=== PATIENT | male | born 1955 | race African-American/Black ===

== ENCOUNTER 2018-04-06 22:56 | Inpatient (IN) | payer OTHER ==
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
[2018-04-07] MEDS ORDERED: NALOXONE 0.4 MG/ML 1 ML VIAL IV PRN (00:20)
[2018-04-07] MEDS ORDERED: ONDANSETRON 4 MG/2 ML VIAL IVP PRN (00:20)
[2018-04-07] MEDS ORDERED: LORazepam 2 MG/ML INJ IV PRN ×2 (00:23)
[2018-04-07] MEDS ORDERED: THIAMINE 100 MG/ML 2 ML VIAL IM STA (00:23)
[2018-04-07] MEDS ORDERED: PHENYTOIN SODIUM EXTENDED 100 MG CAP PO STA (00:24)
[2018-04-07] MEDS: SODIUM CHLORIDE 0.9% 1,000 ML IV SCH ×4 (00:48→21:22)
[2018-04-07] MEDS: MORPHINE SULFATE 4 MG/ML SYRINGE IV PRN ×2 (02:23→05:58)
[2018-04-07 05:54] VITALS: BMI 20.5
[2018-04-07] MEDS: PHENYTOIN SODIUM EXTENDED 100 MG CAP PO SCH ×3 (07:36→21:21)
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
[2018-04-07 10:54] LABS: INR 1.1 (<1.2); Prothrombin Time 11.1 sec (9.0-12.0)
[2018-04-07 11:15] LABS: HCT 38.9 % (39.0-53.0); HGB 12.5 gm/dL (13.0-17.5); MCH 26.3 pg (25.0-35.0); MCV 82.2 fL (80.0-100.0); Mean Platelet Volume 7.6; Platelet Count 118 k/uL (150-450); RBC 4.74 m/uL (4.30-5.90); RDW 15.8 % (11.5-15.5)
[2018-04-07 11:18] LABS: Anion Gap 9 mmol/L; Blood Urea Nitrogen 10 mg/dL (9-20); Calcium 8.2 mg/dL (8.4-10.2); Carbon Dioxide 26 mmol/L (22-30); Chloride 102 mmol/L (98-107); Glucose 90 mg/dL (74-99); Potassium 3.9 mmol/L (3.5-5.1); Sodium 137 mmol/L (137-145)
[2018-04-07] MEDS: HEPARIN SODIUM,PORCINE 5,000 UNIT/ML 1 ML VIAL SQ SCH ×2 (12:59→21:21)
[2018-04-07] MEDS: THIAMINE 100 MG TAB PO SCH ×2 (12:59→17:31)
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
[2018-04-07] MEDS: FOLIC ACID 1 MG TAB PO SCH (17:31)
[2018-04-07] MEDS: chlordiazePOXIDE 25 MG CAP PO SCH (21:21)
[2018-04-08] MEDS: MORPHINE SULFATE 4 MG/ML SYRINGE IV PRN ×3 (00:44→17:17)
[2018-04-08] MEDS: SODIUM CHLORIDE 0.9% 1,000 ML IV SCH ×3 (06:11→16:54)
[2018-04-08] MEDS: HEPARIN SODIUM,PORCINE 5,000 UNIT/ML 1 ML VIAL SQ SCH (07:28)
[2018-04-08] MEDS: PHENYTOIN SODIUM EXTENDED 100 MG CAP PO SCH ×3 (07:29→20:31)
[2018-04-08] MEDS: chlordiazePOXIDE 25 MG CAP PO SCH ×2 (07:29→20:29)
[2018-04-08] MEDS ORDERED: MIDAZOLAM 2 MG/2 ML VIAL ONE (07:55)
[2018-04-08] MEDS ORDERED: diphenhydrAMINE 50 MG/ML 1 ML VIAL ONE (07:55)
[2018-04-08] MEDS ORDERED: fentaNYL (PF) 50 MCG/ML 2 ML AMP ONE (07:55)
[2018-04-08] MEDS ORDERED: SODIUM CHLORIDE 0.9% 1,000 ML IV ONE ×2 (07:55)
[2018-04-08] MEDS ORDERED: SODIUM CHLORIDE 0.9% 50 ML with ceFAZolin 2,000 MG IV ONE ×2 (08:10)
[2018-04-08] MEDS ORDERED: LACTATED RINGERS 1,000 ML IV ONE (08:32)
--- NOTE | 2018-04-08 09:13 | P.OP ---
Date of Procedure: 04/08/18 Preoperative Diagnosis: Displaced left intertrochanteric femur fracture Postoperative Diagnosis: Same Procedure(s) Performed: Open reduction and internal fixation left displaced intertrochanteric femur fracture Implants: King 4-hole free lock, one 35, standard barrel, 95 mm compression screw Anesthesia: spinal Surgeon: George Alvarez Estimated Blood Loss (ml): 100 Pathology: none sent Condition: stable Disposition: PACU Indications for Procedure: The patient's a 62-year-old male presents with left hip pain after a fall. He was noted to have a displaced left intertrochanteric femur fracture. A discussion of the risks and benefits of operative intervention was made with patient. He opted to proceed. Specific risks of the procedure to include infection, neurovascular injury, development of blood clots, possible development of nonunion/malunion and need for subsequent procedures was discussed. Informed consent was obtained. Operative Findings: As below Description of Procedure: The patient was brought to the operating room, and after induction of spinal anesthesia was placed supine on the fracture table. The fracture was reduced with longitudinal traction and internal rotation of the left leg. This was verified with fluoroscopy on the AP and lateral views. The left hip was then prepped and draped in normal fashion. An 8 cm incision was then made starting distal to the greater trochanter in line with the femoral shaft. Skin and subcutaneous tissues were divided sharply. Electrocautery was used for hemostasis. The fascia avinash was split in line with the skin incision. The vastus lateralis fascia was split along its posterior margins of muscle fibers were bluntly dissected anteriorly. A threaded guidepin was then placed into the center-center position of the femoral head and neck on the AP and lateral views to within 5 mm the articular surface. A triple reamer was used to a depth of 95 mm. A 95 mm compression screw was inserted. A 4 hole sideplate was attached to lateral femur with 4.5 mm cortical screws the appropriate length. A short compression screw was utilized. Traction was then released. Final fluoroscopic views showed adequate reduction of fracture and placement of the implant. The wound was irrigated normal saline. The fascia avinash was closed with running #1 Vicryl suture. The subcutaneous tissues were reapproximated interrupted 2-0 Vicryl sutures. The skin was repaired with aziza. A sterile dressing was applied. The patient was awoken from sedation and transferred to recovery room in good condition. Blood loss was estimated at 100 cc. No complications were incurred. Sponge and needle counts were correct at the end the case.
--- NOTE | 2018-04-08 09:49 | P.PN ---
Subjective Progress Note Date: 04/08/18 Patient reported feeling better with pain control appropriate. Patient was seen just before he was rolled out of the room to the operating room. Patient denies chest pain, palpitation, fever, chills, nausea, vomiting, headache, diaphoresis, dizziness and denies rest of the review system. Nurses reported that patient's CIWA score was better and there was no reported DTs. Patient is tolerating scheduled Librium and as needed Ativan well. Patient also stated that this visit he did not had any withdrawal symptoms. No other issues reported by the nurses and no breakthrough seizure activity reported by them. Objective - Vital Signs Vital signs: Vital Signs Temp 97.5 F L 04/08/18 09:10 Pulse 85 04/08/18 09:25 Resp 16 04/08/18 09:25 BP 105/68 04/08/18 09:25 Pulse Ox 94 L 04/08/18 09:25 Intake & Output 04/07/18 04/08/18 04/08/18 18:59 06:59 18:59 Intake Total 1700 700 Output Total 200 200 100 Balance 1500 -200 600 Intake: IV 700 Intake, IV Titration 600 Amount Sodium Chloride 0.9% 1, 600 000 ml @ 150 mls/hr IV . Q6H40M [facility] Rx#:[id number] Oral 1100 Output: Urine 200 200 Estimated Blood Loss 100 Other: Voiding Method Urinal Urinal # Voids 2 1 - Constitutional General appearance: Present: average body habitus, cooperative, no acute distress - EENT Eyes: Present: EOMI, normal appearance - Neck Neck: Present: normal ROM. Absent: lymphadenopathy, rigidity, stridor, thyromegaly - Respiratory Respiratory: bilateral: CTA, negative: dullness, rales, rhonchi, wheezing - Cardiovascular Rhythm: regular Heart sounds: normal: S1, S2 Abnormal Heart Sounds: Absent: systolic murmur, diastolic murmur, S3 Gallop, S4 Gallop - Gastrointestinal General gastrointestinal: Present: normal bowel sounds, soft. Absent: distended , organomegaly, rigid, tenderness - Neurologic Neurologic: Present: CNII-XII intact. Absent: focal deficits - Psychiatric Psychiatric: Present: A&O x's 3, appropriate affect, intact judgment & insight - Allied health notes Allied health notes reviewed: nursing - Labs CBC & Chem 7: 04/07/18 10:37 04/07/18 10:37 Labs: Abnormal Lab Results - Last 24 Hours (Table) 04/07/18 04/07/18 Range/Units 10:37 10:37 Hgb 12.5 L (13.0-17.5) gm/dL Hct 38.9 L (39.0-53.0) % RDW 15.8 H (11.5-15.5) % Plt Count 118 L (150-450) k/uL Creatinine 0.48 L (0.66-1.25) mg/dL Calcium 8.2 L (8.4-10.2) mg/dL Assessment and Plan (1) Alcohol intoxication Narrative/Plan: Patient is well controlled for his alcohol withdrawal symptoms, he reported no feeling of withdrawal from alcohol and nurses reported no documented evidence of significant alcohol withdrawal. Patient will be continued on Librium/Ativan orally and will be resumed once he is back from surgery. Current Visit: Yes Status: Acute Priority: High Code(s): F10.929 - ALCOHOL USE, UNSPECIFIED WITH INTOXICATION, UNSPECIFIED SNOMED Code(s): 10694007 (2) Seizure disorder Narrative/Plan: Fairly stable on current management with Dilantin, no breakthrough seizure activity noted or reported, we will continue the current management. Current Visit: Yes Status: Acute Priority: High Code(s): G40.909 - EPILEPSY, UNSP, NOT INTRACTABLE, WITHOUT STATUS EPILEPTICUS SNOMED Code(s): 892700632 (3) Polysubstance abuse Narrative/Plan: Counseling done regarding quitting crack cocaine/marijuana and this was not well taken by the patient. Current Visit: Yes Status: Acute Priority: High Code(s): F19.10 - OTHER PSYCHOACTIVE SUBSTANCE ABUSE, UNCOMPLICATED SNOMED Code(s): 142722308 (4) Intertrochanteric fracture of left femur Narrative/Plan: Patient will be going for left hip open reduction and internal fixation today. Current Visit: Yes Status: Acute Priority: Medium Code(s): S72.142A - DISPLACED INTERTROCHANTERIC FRACTURE OF LEFT FEMUR, INIT SNOMED Code(s): 799068276 Plan: We will continue to monitor his medical conditions while he is in the hospital, thanks for consulting medicine/hospitalist team for the medical management of this nice gentleman. Time with Patient: Less than 30
--- NOTE | 2018-04-08 10:46 | XR ---
FLUOROSCOPY 39 seconds of fluoroscopy time were utilized during internal fixation of the left hip. 3 images docum ent the procedure.
[2018-04-08] MEDS: FOLIC ACID 1 MG TAB PO SCH (13:18)
[2018-04-08] MEDS: THIAMINE 100 MG TAB PO SCH ×2 (13:18→16:54)
[2018-04-08] MEDS: ceFAZolin IN SWFI 2 GM/20 ML SYRINGE IVP SCH ×2 (16:53→23:53)
[2018-04-08] MEDS ORDERED: HYDROcodone/APAP 7.5-325MG 1 EACH TAB PO PRN ×2 (18:43)
[2018-04-08] MEDS ORDERED: HYDROmorphone 1 MG/ML 1 ML SYRINGE IM PRN ×2 (18:43)
[2018-04-08] MEDS ORDERED: HYDROmorphone 1 MG/ML 1 ML SYRINGE IVP PRN ×2 (18:46)
[2018-04-08] MEDS: LORazepam 2 MG/ML INJ IV PRN ×3 (19:29→23:32)
[2018-04-09 07:33] LABS: Basophils % (A) 0 %; Eosinophils # (A) 0.1 k/uL (0-0.7); Eosinophils % (A) 1 %; HCT 32.9 % (39.0-53.0); HGB 10.6 gm/dL (13.0-17.5); Lymphocytes # (A) 1.2 k/uL (1.0-4.8); Lymphocytes % (A) 12 %; MCH 26.3 pg (25.0-35.0); MCHC 32.1 g/dL (31.0-37.0); MCV 81.8 fL (80.0-100.0); Mean Platelet Volume 8.2; Monocytes # (A) 0.6 k/uL (0-1.0); Monocytes % (A) 6 %; Neutrophils # (A) 7.7 k/uL (1.3-7.7); Neutrophils % (A) 80 %; RBC 4.03 m/uL (4.30-5.90); RDW 15.9 % (11.5-15.5); WBC 9.7 k/uL (3.8-10.6)
[2018-04-09 07:42] LABS: Platelet Count 89 k/uL (150-450)
[2018-04-09] MEDS: SODIUM CHLORIDE 0.9% 1,000 ML IV SCH ×3 (08:20→15:19)
[2018-04-09] MEDS: PHENYTOIN SODIUM EXTENDED 100 MG CAP PO SCH ×3 (08:56→21:49)
[2018-04-09] MEDS: chlordiazePOXIDE 25 MG CAP PO SCH (08:56)
[2018-04-09] MEDS: HEPARIN SODIUM,PORCINE 5,000 UNIT/ML 1 ML VIAL SQ SCH ×2 (08:57→21:49)
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
[2018-04-09] MEDS: THIAMINE 100 MG TAB PO SCH ×2 (13:03→16:26)
[2018-04-09] MEDS: FOLIC ACID 1 MG TAB PO SCH (13:03)
--- NOTE | 2018-04-09 17:22 | P.PN ---
Subjective Progress Note Date: 04/09/18 Principal diagnosis: Status post ORIF left intertrochanteric hip fracture Patient seen today resting in bed, he is very sleepy during my exam. He is articulating his eyes open. Pain is controlled. There was concern last night the patient was in DTs, this has improved with current medical regimen. Objective - Vital Signs Vital signs: Vital Signs Temp 99.9 F H 04/09/18 15:00 Pulse 92 04/09/18 15:00 Resp 12 04/09/18 15:00 BP 101/64 04/09/18 15:00 Pulse Ox 91 L 04/09/18 15:00 Intake & Output 04/08/18 04/09/18 04/09/18 18:59 06:59 18:59 Intake Total 3230 1375 Output Total 2300 125 Balance 930 -125 1375 Intake: IV 900 1200 Sodium Chloride 0.9% 1, 1200 000 ml @ 150 mls/hr IV . Q6H40M [facility] Rx#:[id number] Intake, IV Titration 950 Amount Sodium Chloride 0.9% 1, 900 000 ml @ 150 mls/hr IV . Q6H40M [facility] Rx#:[id number] Sodium Chloride 0.9% 50 50 ml @ 0 mls/hr IV .STK-MED ONE with ceFAZolin 2,000 mg Rx#:[id number] Oral 1380 175 Output: Urine 2200 125 Estimated Blood Loss 100 Other: Voiding Method Urinal Urinal # Voids 1 2 - Exam Left lower extremity: Incision is clean, dry, and intact. Herber are in good position and condition There is minimal soft tissue swelling and ecchymosis surrounding the medial and lateral aspects of the incision. Calf is soft, no tenderness with palpation. Plantar flexion, dorsiflexion, EHL, FHL are intact. Sensory exam to light touch throughout the extremity is intact, dorsal pedis pulses 2+. - Labs CBC & Chem 7: 04/09/18 06:45 04/07/18 10:37 Labs: Abnormal Lab Results - Last 24 Hours (Table) 04/09/18 Range/Units 06:45 RBC 4.03 L (4.30-5.90) m/uL Hgb 10.6 L (13.0-17.5) gm/dL Hct 32.9 L (39.0-53.0) % RDW 15.9 H (11.5-15.5) % Plt Count 89 L (150-450) k/uL Assessment and Plan Plan: Assessment: Postoperative day #1 status post ORIF left intertrochanteric hip fracture Plan: Pain control, continue current management Weight-bear as tolerated with walker, continue work with physical therapy Encourage incentive spirometer GI and DVT prophylaxis per medical's recommendation Monitor for DVTs Medical recommendations Discharge planning: Patient will be discharged to rehab in stable Time with Patient: Less than 30
[2018-04-10] MEDS: SODIUM CHLORIDE 0.9% 1,000 ML IV SCH ×5 (02:14→20:28)
[2018-04-10 07:34] LABS: Anisocytosis Slight; HCT 31.5 % (39.0-53.0); HGB 9.9 gm/dL (13.0-17.5); Hypochromasia Slight; MCH 26.3 pg (25.0-35.0); MCHC 31.6 g/dL (31.0-37.0); MCV 83.2 fL (80.0-100.0); Mean Platelet Volume 7.8; Platelet Count 113 k/uL (150-450); RBC 3.78 m/uL (4.30-5.90); RDW 16.3 % (11.5-15.5); WBC 7.5 k/uL (3.8-10.6)
[2018-04-10] MEDS: PHENYTOIN SODIUM EXTENDED 100 MG CAP PO SCH ×3 (08:09→20:28)
[2018-04-10] MEDS: HEPARIN SODIUM,PORCINE 5,000 UNIT/ML 1 ML VIAL SQ SCH ×2 (08:09→20:28)
[2018-04-10] MEDS: FERROUS SULFATE 325 MG TAB PO SCH ×2 (08:09→16:34)
[2018-04-10] MEDS: FOLIC ACID 1 MG TAB PO SCH (11:37)
[2018-04-10] MEDS: THIAMINE 100 MG TAB PO SCH ×2 (11:37→16:34)
--- NOTE | 2018-04-10 12:37 | P.PN ---
Subjective Progress Note Date: 04/10/18 Principal diagnosis: Left hip fracture Doing well, no complaints Objective - Vital Signs Vital signs: Vital Signs Temp 99.1 F 04/10/18 07:20 Pulse 87 04/10/18 07:20 Resp 18 04/10/18 07:20 BP 118/71 04/10/18 07:20 Pulse Ox 95 04/10/18 07:20 Intake & Output 04/09/18 04/10/18 04/10/18 18:59 06:59 18:59 Intake Total 1375 900 Balance 1375 900 Intake: IV 1200 Sodium Chloride 0.9% 1, 1200 000 ml @ 150 mls/hr IV . Q6H40M [facility] Rx#:[id number] Intake, IV Titration 900 Amount Lactated Ringers 1,000 ml 600 @ 0 mls/hr IV .STK-MED ONE Rx#:[id number] Sodium Chloride 0.9% 1, 300 000 ml @ 150 mls/hr IV . Q6H40M [facility] Rx#:[id number] Oral 175 Other: Voiding Method Incontinent # Voids 2 - Exam General: non toxic, no distress, appears at stated age, thin and frail appearing Derm: warm, dry Head: atraumatic, normocephalic, symmetric Eyes: EOMI, no lid lag, anicteric sclera Mouth: no lip lesion, mucus membranes moist Cardiovascular: S1S2 reg, no murmur, positive posterior tibial pulse bilateral, Lungs: decreased breath sounds bilateral bases, no rhonchi, no rales , no accessory muscle use Abdominal: soft, nontender to palpation, no guarding, no appreciable organomegaly Ext: no gross muscle atrophy, no edema, no contractures Neuro: CN II-XI grossly intact, no focal neuro deficits Psych: Lethargic-wakes up and answers questions appropriately but immediately falls back asleep, oriented, LAD affect - Labs CBC & Chem 7: 04/10/18 06:37 04/07/18 10:37 Labs: Abnormal Lab Results - Last 24 Hours (Table) 04/10/18 Range/Units 06:37 RBC 3.78 L (4.30-5.90) m/uL Hgb 9.9 L (13.0-17.5) gm/dL Hct 31.5 L (39.0-53.0) % RDW 16.3 H (11.5-15.5) % Plt Count 113 L (150-450) k/uL Assessment and Plan Plan: Left hip fracture -Status post operative repair -DVT prophylaxis per orthopedic surgery -Pain control -PT/OT Alcohol abuse with impending DTs -Decrease Librium to 10 mg 3 times a day -CIWA protocol -Thiamine supplementation Anticipated acute blood loss anemia -Follow CBC -Continue iron supplementation therapy BID X 30 days -Repeat a repeat CBC in 1 week at rehab Thrombocytopenia likely related to alcohol consumption and consumptive from recent surgery Stable Seizure disorder -Continue with Dilantin DVT prophylaxis: Heparin subcutaneous Discussed with: Patient, nursing Anticipated discharge: [address]: SNF A total of 25 minutes was spent on the care of this complex patient more than 50 % of the time was spent in counseling and care coordination.
--- NOTE | 2018-04-10 17:21 | P.PN ---
Subjective Progress Note Date: 04/10/18 Principal diagnosis: Status post ORIF left intertrochanteric hip fracture Patient seen today resting in bed. Pain is controlled. Objective - Vital Signs Vital signs: Vital Signs Temp 99.2 F 04/10/18 15:00 Pulse 93 04/10/18 15:00 Resp 12 04/10/18 15:00 BP 99/63 04/10/18 15:00 Pulse Ox 94 L 04/10/18 15:00 Intake & Output 04/09/18 04/10/18 04/10/18 18:59 06:59 18:59 Intake Total 1375 900 540 Balance 1375 900 540 Intake: IV 1200 Sodium Chloride 0.9% 1, 1200 000 ml @ 150 mls/hr IV . Q6H40M [facility] Rx#:[id number] Intake, IV Titration 900 Amount Lactated Ringers 1,000 ml 600 @ 0 mls/hr IV .STK-MED ONE Rx#:[id number] Sodium Chloride 0.9% 1, 300 000 ml @ 150 mls/hr IV . Q6H40M [facility] Rx#:[id number] Oral 175 540 Other: Voiding Method Incontinent # Voids 2 - Exam Left lower extremity: Incision is clean, dry, and intact. Herber are in good position and condition There is minimal soft tissue swelling and ecchymosis surrounding the medial and lateral aspects of the incision. Calf is soft, no tenderness with palpation. Plantar flexion, dorsiflexion, EHL, FHL are intact. Sensory exam to light touch throughout the extremity is intact, dorsal pedis pulses 2+. - Labs CBC & Chem 7: 04/10/18 06:37 04/07/18 10:37 Labs: Abnormal Lab Results - Last 24 Hours (Table) 04/10/18 Range/Units 06:37 RBC 3.78 L (4.30-5.90) m/uL Hgb 9.9 L (13.0-17.5) gm/dL Hct 31.5 L (39.0-53.0) % RDW 16.3 H (11.5-15.5) % Plt Count 113 L (150-450) k/uL Assessment and Plan Plan: Assessment: Postoperative day #2 status post ORIF left intertrochanteric hip fracture Plan: Pain control, continue current management Weight-bear as tolerated with walker, continue work with physical therapy Encourage incentive spirometer GI and DVT prophylaxis per medical's recommendation Monitor for DVTs Medical recommendations Discharge planning: Hopeful discharged to rehab tomorrow Time with Patient: Less than 30
[2018-04-11] MEDS: SODIUM CHLORIDE 0.9% 1,000 ML IV SCH ×2 (05:58→13:17)
[2018-04-11 07:13] LABS: Anisocytosis Slight; Basophils % (A) 0 %; Eosinophils # (A) 0.1 k/uL (0-0.7); Eosinophils % (A) 2 %; HCT 29.7 % (39.0-53.0); HGB 9.5 gm/dL (13.0-17.5); Hypochromasia Slight; Lymphocytes # (A) 1.7 k/uL (1.0-4.8); Lymphocytes % (A) 30 %; MCH 26.9 pg (25.0-35.0); MCV 83.9 fL (80.0-100.0); Mean Platelet Volume 7.6; Monocytes # (A) 0.6 k/uL (0-1.0); Monocytes % (A) 10 %; Neutrophils # (A) 3.1 k/uL (1.3-7.7); Neutrophils % (A) 55 %; Platelet Count 143 k/uL (150-450); RBC 3.54 m/uL (4.30-5.90); RDW 16.5 % (11.5-15.5); WBC 5.6 k/uL (3.8-10.6)
[2018-04-11 07:56] LABS: Anion Gap 2 mmol/L; Blood Urea Nitrogen 4 mg/dL (9-20); Calcium 7.9 mg/dL (8.4-10.2); Carbon Dioxide 30 mmol/L (22-30); Chloride 107 mmol/L (98-107); Glucose 101 mg/dL (74-99); Magnesium 1.5 mg/dL (1.6-2.3); Potassium 3.5 mmol/L (3.5-5.1); Sodium 139 mmol/L (137-145)
[2018-04-11 08:15] VITALS: BP 113/72; PULSE 81; RESP 14; TEMP 98.5
[2018-04-11] MEDS: FOLIC ACID 1 MG TAB PO SCH (09:11)
[2018-04-11] MEDS: THIAMINE 100 MG TAB PO SCH (09:11)
[2018-04-11] MEDS: PHENYTOIN SODIUM EXTENDED 100 MG CAP PO SCH (09:11)
[2018-04-11] MEDS: HEPARIN SODIUM,PORCINE 5,000 UNIT/ML 1 ML VIAL SQ SCH (09:11)
[2018-04-11] MEDS: FERROUS SULFATE 325 MG TAB PO SCH (09:11)
--- NOTE | 2018-04-11 13:53 | P.PN ---
Subjective Progress Note Date: 04/11/18 Principal diagnosis: Status post ORIF left intertrochanteric hip fracture Patient seen today resting in bed. Pain is controlled. Objective - Vital Signs Vital signs: Vital Signs Temp 98.5 F 04/11/18 07:50 Pulse 81 04/11/18 07:50 Resp 14 04/11/18 07:50 BP 113/72 04/11/18 07:50 Pulse Ox 96 04/11/18 07:50 Intake & Output 04/10/18 04/11/18 04/11/18 18:59 06:59 18:59 Intake Total 540 1350 Output Total 200 Balance 540 1150 Intake: IV 1350 Sodium Chloride 0.9% 1, 1350 000 ml @ 150 mls/hr IV . Q6H40M [facility] Rx#:[id number] Oral 540 Output: Urine 200 Other: Voiding Method Urinal Urinal # Voids 5 - Exam Left lower extremity: Incision is clean, dry, and intact. Abell are in good position and condition There is minimal soft tissue swelling and ecchymosis surrounding the medial and lateral aspects of the incision. Calf is soft, no tenderness with palpation. Plantar flexion, dorsiflexion, EHL, FHL are intact. Sensory exam to light touch throughout the extremity is intact, dorsal pedis pulses 2+. - Labs CBC & Chem 7: 04/11/18 06:46 04/11/18 06:46 Labs: Abnormal Lab Results - Last 24 Hours (Table) 04/11/18 04/11/18 Range/Units 06:46 06:46 RBC 3.54 L (4.30-5.90) m/uL Hgb 9.5 L (13.0-17.5) gm/dL Hct 29.7 L (39.0-53.0) % RDW 16.5 H (11.5-15.5) % Plt Count 143 L (150-450) k/uL BUN 4 L (9-20) mg/dL Creatinine 0.50 L (0.66-1.25) mg/dL Glucose 101 H (74-99) mg/dL Calcium 7.9 L (8.4-10.2) mg/dL Magnesium 1.5 L (1.6-2.3) mg/dL Assessment and Plan Plan: Assessment: Postoperative day #3 status post ORIF left intertrochanteric hip fracture Plan: Pain control, continue current management Weight-bear as tolerated with walker, continue work with physical therapy Encourage incentive spirometer GI and DVT prophylaxis we'll discharge on heparin 5000 units every 12 Monitor for DVTs Medical recommendations Discharge planning: Planning for discharge rehab today Time with Patient: Less than 30
--- NOTE | 2018-04-11 13:54 | P.PN ---
Subjective Progress Note Date: 04/11/18 Principal diagnosis: Left hip fracture No overnight issues Objective - Vital Signs Vital signs: Vital Signs Temp 98.5 F 04/11/18 07:50 Pulse 81 04/11/18 07:50 Resp 14 04/11/18 07:50 BP 113/72 04/11/18 07:50 Pulse Ox 96 04/11/18 07:50 Intake & Output 04/10/18 04/11/18 04/11/18 18:59 06:59 18:59 Intake Total 540 1350 Output Total 200 Balance 540 1150 Intake: IV 1350 Sodium Chloride 0.9% 1, 1350 000 ml @ 150 mls/hr IV . Q6H40M [facility] Rx#:[id number] Oral 540 Output: Urine 200 Other: Voiding Method Urinal Urinal # Voids 5 - Exam General: non toxic, no distress, appears at stated age, thin and frail appearing Derm: warm, dry Head: atraumatic, normocephalic, symmetric Eyes: EOMI, no lid lag, anicteric sclera Mouth: no lip lesion, mucus membranes moist Cardiovascular: S1S2 reg, no murmur, positive posterior tibial pulse bilateral, Lungs: decreased breath sounds bilateral bases, no rhonchi, no rales , no accessory muscle use Abdominal: soft, nontender to palpation, no guarding, no appreciable organomegaly Ext: no gross muscle atrophy, no edema, no contractures Neuro: CN II-XI grossly intact, no focal neuro deficits Psych: Lethargic-wakes up and answers questions appropriately but immediately falls back asleep, oriented, LAD affect - Labs CBC & Chem 7: 04/11/18 06:46 04/11/18 06:46 Labs: Abnormal Lab Results - Last 24 Hours (Table) 04/11/18 04/11/18 Range/Units 06:46 06:46 RBC 3.54 L (4.30-5.90) m/uL Hgb 9.5 L (13.0-17.5) gm/dL Hct 29.7 L (39.0-53.0) % RDW 16.5 H (11.5-15.5) % Plt Count 143 L (150-450) k/uL BUN 4 L (9-20) mg/dL Creatinine 0.50 L (0.66-1.25) mg/dL Glucose 101 H (74-99) mg/dL Calcium 7.9 L (8.4-10.2) mg/dL Magnesium 1.5 L (1.6-2.3) mg/dL Assessment and Plan Plan: Left hip fracture -Status post operative repair -DVT prophylaxis per orthopedic surgery -Pain control -PT/OT Alcohol abuse with impending DTs -Decrease Librium to 10 mg 3 times a day -CIWA protocol -Thiamine supplementation Anticipated acute blood loss anemia -Follow CBC -Continue iron supplementation therapy BID X 30 days -Repeat a repeat CBC in 1 week at rehab Thrombocytopenia likely related to alcohol consumption and consumptive from recent surgery Stable Seizure disorder -Continue with Dilantin DVT prophylaxis: Heparin subcutaneous Discussed with: Patient, nursing Anticipated discharge: [address]: [facility] A total of 25 minutes was spent on the care of this complex patient more than 50 % of the time was spent in counseling and care coordination.
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
== END 2018-04-11 15:31 | DRG 481 ==
LOC: EC 22:56 → 5MS5E 04-07 00:21 → 3SUR 04-08 18:31
PROVIDERS: ADMIT Orthopaedic Surgery; ATTEND Orthopaedic Surgery
PROC: 0QS734Z Reposition Left Upper Femur with Internal Fixation Device, Percutaneous Approach (ICD-10-PCS; principal; 2018-04-08 08:00)
DX: S72.142A Displaced intertrochanteric fracture of left femur, initial encounter for closed fracture (principal); F10.231 Alcohol dependence with withdrawal delirium; G40.919 Epilepsy, unspecified, intractable, without status epilepticus; D62 Acute posthemorrhagic anemia; D69.59 Other secondary thrombocytopenia; N32.81 Overactive bladder; R32 Unspecified urinary incontinence; F19.10 Other psychoactive substance abuse, uncomplicated; Z79.82 Long term (current) use of aspirin; Z79.899 Other long term (current) drug therapy; Z87.820 Personal history of traumatic brain injury; Z87.828 Personal history of other (healed) physical injury and trauma; Z87.81 Personal history of (healed) traumatic fracture; Y93.55 Activity, bike riding; V18.4XXA Pedal cycle driver injured in noncollision transport accident in traffic accident, initial encounter; Z83.3 Family history of diabetes mellitus
CPT/HCPCS: 73502; 80048; 83735; 85025; 85027; 85610; 93005; 96372; 99285

== ENCOUNTER → 2023-03-29 | Outpatient (CLI) | payer MEDICARE, OTHER ==
--- NOTE | 2023-03-29 15:20 | MR ---
EXAMINATION TYPE: MR lumbar spine wo con DATE OF EXAM: 03/29/2023 2:21 PM COMPARISON: NONE HISTORY: Low back pain, lumbar fracture Multiplanar, MultiSpin echo imaging of the lumbar spine was performed. L1-L2: Normal disc appearance without desiccation. No herniation, protrusion or disc bulging. No ca nal stenosis is present. Foramina are patent bilaterally. L2-L3: Mild decreased signal loss of height compatible with degenerative disc disease. Mild posterior disc bulge with mild effacement of ventral thecal sac. No disc herniation or central stenosis. L3-L4: Acute compression fracture with loss of height estimated at 50-60%. There is bone marrow edema noted. No definite bony retropulsion however there appears to be herniated disc material measuring 6 .9 cm AP dimension by 1.2 cm AP dimension. There is also anterolisthesis of L3 on L4 of 8.6 mm. There is resultant severe central stenosis. Severe bilateral foraminal encroachment. Paraspinal hematoma n oted. L4-L5: Acute compression fracture with loss of height estimated at 50%. There is bone marrow edema no ta. No definite bony retropulsion. Posterior disc bulge subligamentous herniation effaces the ventra l thecal sac. Bilateral lateral recess stenosis with borderline central stenosis. Mild neural foramin al encroachment seen left greater than right. Small paraspinal hematoma and edema noted. L5-S1: Severe disc desiccation with vacuum disc and posterior disc bulge. No evidence for chema herni ation. No central stenosis. Grade 1 retrolisthesis of L5 on S1 of 7.7 mm without spondylolysis. Sever e facet joint arthropathy with severe bilateral foraminal encroachment. Transitional S1 vertebral seg ment suspected with rudimentary S1-S2 disc. Conus medullaris has a normal appearance. T12 and L2 hemangiomas. IMPRESSION: 1. Acute compression fractures of L3-4 and L4-5 as discussed without involvement of the middle column or posterior column. Paraspinal edema and small hematomas. 2. Severe central stenosis at L3-4 down to be a result of spondylolisthesis as well as what appears t o be a disc herniation. See above.
== END | disposition home or self-care (01) ==
LOC: MERGE 13:15 → RADMRIMAIN 13:32
PROVIDERS: ATTEND Orthopaedic Surgery
DX: S32.040A Wedge compression fracture of fourth lumbar vertebra, initial encounter for closed fracture (principal); S32.030A Wedge compression fracture of third lumbar vertebra, initial encounter for closed fracture; S32.050A Wedge compression fracture of fifth lumbar vertebra, initial encounter for closed fracture; M99.73 Connective tissue and disc stenosis of intervertebral foramina of lumbar region; M51.36 Other intervertebral disc degeneration, lumbar region; M43.16 Spondylolisthesis, lumbar region; R60.0 Localized edema
CPT/HCPCS: 72148

== ENCOUNTER → 2024-01-17 | Outpatient (CLI) | payer MEDICARE ==
[2024-01-17 12:14] LABS: African American GFR (CKD) >90 (>60 ml/min/1.73 sqM); Blood Urea Nitrogen 13 mg/dL (9-20); Non-African American GFR(CKD) >90 (>60 ml/min/1.73 sqM)
--- NOTE | 2024-01-17 14:35 | CT ---
EXAMINATION TYPE: CT abdomen w con DATE OF EXAM: 01/17/2024 COMPARISON: NONE HISTORY: 68-year-old male N13.30, unspecified hydronephrosis TECHNIQUE: Contiguous axial scanning of the abdomen following administration of 100 ml Isovue 300 IV contrast. Delayed images through the kidneys and coronal/sagittal reconstructions performed. CT DLP: 796 mGycm Automated exposure control for dose reduction was used. FINDINGS: The heart is normal size without pericardial effusion. Atelectasis or scarring at the lung bases with out pleural effusion. 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 Suboptimal contrast injection with only mild generalized enhancement. Within this limitation, liver, gallbladder, adrenal glands, spleen, and pancreas within normal limits . Tiny 7 mm cortical hypodensity mid to lower pole right kidney too small for accurate CT characterizat ion, possible tiny cortical cyst. Reassess status 6 month follow-up CT to ensure stability. There are bilateral renal parapelvic cysts measuring up to 3.2 cm on the left and 1.6 cm on the right . Punctate 2 mm nonobstructive left upper pole renal calculus. No dilated small bowel, free fluid, or free air. No mesenteric or retroperitoneal lymphadenopathy. Tiny fatty umbilical hernia. Moderate stool burden. Mild scattered colonic diverticulosis especially in the left side of the colon . No perihepatic inflammatory change. Pelvis not imaged. Bones: Chronic appearing compression deformities of L3 and L4 vertebral bodies with some degenerative bony ankylosis and a fixed grade 1 anterolisthesis. Severe focal spinal canal stenosis here. IMPRESSION: 1. BILATERAL PARAPELVIC CYSTS WITHIN THE KIDNEYS. WE FAVOR parapelvic cysts measuring up to 3.2 cm si mulating the appearance of hydronephrosis. Given the suboptimal contrast bolus on the present exam, r ecommend six-month follow-up contrast enhanced CT for better delineation of the collecting systems on the delayed scan. 2. The follow-up exam can also reassess an indeterminate 7 mm cortical lesion within the mid to lower pole of the right kidney. 3. Punctate nonobstructive 2 mm left renal stone. 4. Scattered left-sided colonic diverticulosis. Moderate stool burden. 5. Now chronic compression deformities of L3 and L4 with focal severe spinal canal stenosis here at L 3-L4.
== END | disposition home or self-care (01) ==
LOC: RADCTMAIN 11:15
PROVIDERS: ATTEND Family Medicine
DX: N13.2 Hydronephrosis with renal and ureteral calculous obstruction (principal); K57.30 Diverticulosis of large intestine without perforation or abscess without bleeding; M48.061 Spinal stenosis, lumbar region without neurogenic claudication; M48.56XA Collapsed vertebra, not elsewhere classified, lumbar region, initial encounter for fracture
CPT/HCPCS: 82565; 84520; 74160; 36415; Q9967

== ENCOUNTER 2024-02-15 14:22 | Emergency (ER) | payer MEDICARE ==
[2024-02-15 15:23] LABS: Appearance,Urine Clear (Clear); Bilirubin,Urine Negative (Negative); Blood,Urine Negative (Negative); Color,Urine Yellow; Glucose,Urine (UA) Negative (Negative); Ketones,Urine Negative (Negative); Leukocyte Esterase,Urine Negative (Negative); Nitrite,Urine Negative (Negative); PH, Urine 5.5 (5.0-8.0); Protein,Urine Negative (Negative); Specific Gravity,Urine 1.027 (1.001-1.035)
[2024-02-15 15:37] LABS: Amphetamine Screen,Urine Not Detected (NotDetected); Barbiturate Screen,Urine Detected (NotDetected); Benzodiazepines Screen,Urine Not Detected (NotDetected); Cocaine Screen,Urine Not Detected (NotDetected); Methadone Screen, Urine Not Detected (NotDetected); Opiate Screen,Urine Not Detected (NotDetected); Oxycodone Screen, Urine Not Detected (NotDetected); Phencyclidine Screen,Urine Not Detected (NotDetected); Tricyclic Antidepressant,Urine Not Detected (NotDetected); Urn Cannabinoid Scrn Detected (NotDetected)
--- NOTE | 2024-02-15 16:12 | ED ---
Psych HPI - General Chief Complaint: Psychiatric Symptoms Stated Complaint: Mental Health Time Seen by Provider: 02/15/24 15:08 Source: patient, EMS, RN notes reviewed Mode of arrival: EMS Limitations: no limitations - History of Present Illness Initial Comments: This is a 68-year-old male who presents to the emergency department for psychiatric evaluation. Patient is currently at [facility] and per staff members, he has been aggressive, yelling at staff and other residents and being threatening. Patient states that he never wanted to be at [facility] and had initially wanted to go to [facility]. At this point all he wants to do is leave [facility] and live on his own so he can get his freedom back. He admits to being loud and angry with everyone there, but denies any physical altercations. Also denies any suicidal or homicidal ideations. - Related Data Home Medications Medication Instructions Recorded Confirmed Aspirin EC [Ecotrin Low Dose] 81 mg PO DAILY 04/07/18 02/15/24 Phenytoin Sodium Extended 100 mg PO BID 04/07/18 02/15/24 [Dilantin] Multivitamins, Thera [Multivitamin 1 tab PO DAILY 02/07/23 02/15/24 (formulary)] Pravastatin Sodium [Pravachol] 20 mg PO DAILY 02/07/23 02/15/24 Acetaminophen [Tylenol 8 Hour] 650 mg PO Q8H PRN 02/15/24 02/15/24 Artificial Tears-Hypromellose 1 drops BOTH EYES Q8H PRN 02/15/24 02/15/24 [Artificial Tear Drops] Cholecalciferol [Vitamin D3 (25 25 mcg PO DAILY 02/15/24 02/15/24 Mcg = 1000 Iu)] Cyclobenzaprine [Flexeril] 5 mg PO DAILY PRN 02/15/24 02/15/24 Docusate [Colace] 100 mg PO BID 02/15/24 02/15/24 Lacosamide [Vimpat] 200 mg PO BID 02/15/24 02/15/24 Naloxone HCl [Narcan] 4 mg NASAL DIRECTED PRN 02/15/24 02/15/24 Sennosides/Docusate Sodium 1 tab PO DAILY 02/15/24 02/15/24 [Senna-S 8.6-50 mg Tablet] metFORMIN HCL ER [Glucophage XR] 500 mg PO BID 02/15/24 02/15/24 Previous Rx's Medication Instructions Recorded HYDROcodone/APAP 5-325MG [[place] 1 tab PO Q6H PRN 3 Days #12 tab 02/10/23 5-325] Allergies Allergy/AdvReac Type Severity Reaction Status Date / Time No Known Allergies Allergy Verified 02/15/24 16:25 Review of Systems ROS Statement: Those systems with pertinent positive or pertinent negative responses have been documented in the HPI. ROS Other: All systems not noted in ROS Statement are negative. Past Medical History Past Medical History: Memory Impairment, Osteoarthritis (OA), Seizure Disorder Additional Past Medical History / Comment(s): epigastric pain through to back for couple months, memory loss due to TBI, last seizure about 3 weeks ago History of Any Multi-Drug Resistant Organisms: None Reported Past Surgical History: No Surgical Hx Reported, Orthopedic Surgery Additional Past Surgical History / Comment(s): vasectomy, femur surgery Past Anesthesia/Blood Transfusion Reactions: No Reported Reaction Past Psychological History: Anxiety, Depression, No Psychological Hx Reported Past Alcohol Use History: Daily Past Drug Use History: Cocaine, Marijuana - Past Family History Mother Family Medical History: No Reported History Brother(s) Family Medical History: Diabetes Mellitus (Patient uncle also has diabetes mellitus.) General Exam Limitations: no limitations General appearance: alert, in no apparent distress Head exam: Present: atraumatic, normocephalic, normal inspection Respiratory exam: Present: normal lung sounds bilaterally. Absent: respiratory distress, wheezes, rales, rhonchi, stridor Cardiovascular Exam: Present: regular rate, normal rhythm, normal heart sounds. Absent: systolic murmur, diastolic murmur, rubs, gallop, clicks Neurological exam: Present: alert, oriented X3, CN II-XII intact Psychiatric exam: Present: normal affect, normal mood Skin exam: Present: warm, dry, intact, normal color. Absent: rash Course Vital Signs 02/15/24 02/15/24 14:39 21:49 Temperature 97.6 F 98.0 F Pulse Rate 94 18 L Respiratory 18 78 H Rate Blood Pressure 108/73 128/80 O2 Sat by Pulse 95 96 Oximetry Medical Decision Making - Medical Decision Making This is a 68 year old male who presents to the emergency department for psychiatric evaluation. Was pt. sent in by a medical professional or institution? @ -[facility] Did you speak to anyone other than the patient for history? @ -No Did you review nursing and triage notes? @ -Yes, and I agree, it is accurate with regards to the patient's symptoms. Were old charts reviewed? @ -No Differential Diagnosis? @ -Differential Mental Health: Depression, anxiety, bipolar, psychosis, schizophrenia, borderline personality, situational depression, adjustment disorder, behavioral disorder, brain tumor, malingering, substance abuse, encephalopathy, medication reaction, dementia, hypothyroidism, degenerative neurologic disorder, lupus.... This is not meant to be all-inclusive list EKG interpreted by me (3pts min.)? @ -Not obtained X-rays interpreted by me (1pt min.)? @ -Not obtained CT interpreted by me (1pt min.)? @ -Not obtained U/S interpreted by me (1pt. min.)? @ -Not obtained What testing was considered but not performed? (CT, X-rays, U/S, labs)? Why? @ -None What meds were considered but not given? Why? @ -None Did you discuss the management of the patient with other professionals? @ -Yes, Celi Foley with EPS, who advised that the patient does not meet criteria for inpatient psychiatric hospitalization. He is simply frustrated and expressing his frustrations verbally, but has not been physical at all. She spoke with the patient's legal guardian who will help the patient sign out and either let him stay with her or help him find his own apartment. Did you reconcile home meds? @ -No Was smoking cessation discussed for >3mins.? @ -No Was critical care preformed (if so, how long)? @ -No Were there social determinants of health that impacted care today? How? (Homelessness, low income, unemployed, alcoholism, drug addiction, transportation, low edu. Level, literacy, decrease access to med. care, fpc, rehab)? @ -Drug addiction, potentially contributing to his mental state. Was there de-escalation of care discussed even if they declined? (Discuss DNR or withdrawal of care, Hospice)? @ -No What co-morbidities impacted this encounter? (DM, HTN, Smoking, COPD, CAD, Cancer, CVA, Hep., AIDS, mental health diagnosis, sleep apnea, morbid obesity)? @ -Memory impairment, substance abuse Was patient admitted / discharged? @ -Discharged. Lab work unremarkable. Urine drug screen positive for marijuana and barbiturates. Unclear if the patient is prescribed barbiturates. Patient was refusing the breath alcohol test and serum alcohol test was subsequently obtained and found to be negative. Patient was cleared for EPS evaluation at that time. EPS advised that the patient was thinking clearly and is simply frustrated with his situation and wants to leave [facility] to get his freedom back. He does not currently have any suicidal or homicidal ideations. He has made verbal statements regarding his frustration but has never been physical. Patient subsequently does not meet criteria for inpatient psychiatric hospitalization. EPS did speak with the patient's legal guardian, who advised that they can help him sign out of [facility] and he can live with her if needed. She will also help him look for his own apartment. Safety plan was created as well and the patient was then discharged back to [facility] in stable condition. Undiagnosed new problem with uncertain prognosis? @ -None Drug Therapy requiring intensive monitoring for toxicity (Heparin, Nitro, Insulin, Cardizem)? @ -None Were any procedures done? @ -None Diagnosis/symptom? @ -Irritability and anger Acute, or Chronic, or Acute on Chronic? @ -Acute Uncomplicated (without systemic symptoms) or Complicated (systemic symptoms)? @ -Uncomplicated Side effects of treatment? @ -None Exacerbation, Progression, or Severe Exacerbation] @ -Not applicable Poses a threat to life or bodily function? @ -In general this makes him frustrated with his living situation Return precautions reviewed in depth, the patient is instructed to return to the emergency department with any new, worsening, or concerning symptoms. Patient verbalized understanding. This case was discussed in detail with the attending ED physician, Dr. Tam. Presentation, findings, and treatment plan discussed in detail as well. - Lab Data Result diagrams: 02/15/24 16:33 02/15/24 16:33 Lab Results 02/15/24 02/15/24 02/15/24 Range/Units 14:58 16:33 16:33 WBC 8.1 (3.8-10.6) k/uL RBC 5.60 (4.30-5.90) m/uL Hgb 13.9 (13.0-17.5) gm/dL Hct 45.1 (39.0-53.0) % MCV 80.6 (80.0-100.0) fL MCH 24.8 L (25.0-35.0) pg MCHC 30.8 L (31.0-37.0) g/dL RDW 14.8 (11.5-15.5) % Plt Count 185 (150-450) k/uL MPV 8.7 Neutrophils % 63 % Lymphocytes % 29 % Monocytes % 5 % Eosinophils % 1 % Basophils % 1 % Neutrophils # 5.1 (1.3-7.7) k/uL Lymphocytes # 2.3 (1.0-4.8) k/uL Monocytes # 0.4 (0-1.0) k/uL Eosinophils # 0.1 (0-0.7) k/uL Basophils # 0.1 (0-0.2) k/uL Hypochromasia Slight Sodium 140 (137-145) mmol/L Potassium 4.6 (3.5-5.1) mmol/L Chloride 105 (98-107) mmol/L Carbon Dioxide 29 (22-30) mmol/L Anion Gap 6 mmol/L BUN 15 (9-20) mg/dL Creatinine 0.49 L (0.66-1.25) mg/dL Est GFR (CKD-EPI)AfAm >90 (>60 ml/min/1.73 sqM) Est GFR (CKD-EPI)NonAf >90 (>60 ml/min/1.73 sqM) Glucose 145 H (74-99) mg/dL Calcium 9.2 (8.4-10.2) mg/dL Total Bilirubin 0.4 (0.2-1.3) mg/dL AST 22 (17-59) U/L ALT 20 (4-49) U/L Alkaline Phosphatase 191 H (38-126) U/L Total Protein 6.8 (6.3-8.2) g/dL Albumin 4.2 (3.5-5.0) g/dL Urine Color Yellow Urine Appearance Clear (Clear) Urine pH 5.5 (5.0-8.0) Ur Specific [place] 1.027 (1.001-1.035) Urine Protein Negative (Negative) Urine Glucose (UA) Negative (Negative) Urine Ketones Negative (Negative) Urine Blood Negative (Negative) Urine Nitrite Negative (Negative) Urine Bilirubin Negative (Negative) Urine Urobilinogen 2.0 (<2.0) mg/dL Ur Leukocyte Esterase Negative (Negative) Urine Opiates Screen Not Detected (NotDetected) Ur Oxycodone Screen Not Detected (NotDetected) Urine Methadone Screen Not Detected (NotDetected) Ur Barbiturates Screen Detected H (NotDetected) U Tricyclic Antidepress Not Detected (NotDetected) Ur Phencyclidine Scrn Not Detected (NotDetected) Ur Amphetamines Screen Not Detected (NotDetected) U Methamphetamines Scrn Not Detected (NotDetected) U Benzodiazepines Scrn Not Detected (NotDetected) Urine Cocaine Screen Not Detected (NotDetected) U Marijuana (THC) Screen Detected H (NotDetected) Serum Alcohol <10 mg/dL Disposition Clinical Impression: Irritability and anger Disposition: HOME SELF-CARE Additional Instructions: Return to the emergency department with any new, worsening, or concerning symptoms. Follow up with your primary care provider in 1-2 days. Is patient prescribed a controlled substance at d/c from ED?: No Referrals: Tung Hinson DO [Primary Care Provider] - 1-2 days Time of Disposition: 20:09
[2024-02-15 16:55] LABS: Basophils # (A) 0.1 k/uL (0-0.2); Basophils % (A) 1 %; Eosinophils # (A) 0.1 k/uL (0-0.7); Eosinophils % (A) 1 %; HCT 45.1 % (39.0-53.0); HGB 13.9 gm/dL (13.0-17.5); Hypochromasia Slight; Lymphocytes # (A) 2.3 k/uL (1.0-4.8); Lymphocytes % (A) 29 %; MCH 24.8 pg (25.0-35.0); MCHC 30.8 g/dL (31.0-37.0); MCV 80.6 fL (80.0-100.0); Mean Platelet Volume 8.7; Monocytes # (A) 0.4 k/uL (0-1.0); Monocytes % (A) 5 %; Neutrophils # (A) 5.1 k/uL (1.3-7.7); Neutrophils % (A) 63 %; Platelet Count 185 k/uL (150-450); RDW 14.8 % (11.5-15.5); WBC 8.1 k/uL (3.8-10.6)
[2024-02-15 17:12] LABS: African American GFR (CKD) >90 (>60 ml/min/1.73 sqM); Albumin 4.2 g/dL (3.5-5.0); Anion Gap 6 mmol/L; Carbon Dioxide 29 mmol/L (22-30); Chloride 105 mmol/L (98-107); Glucose 145 mg/dL (74-99); Non-African American GFR(CKD) >90 (>60 ml/min/1.73 sqM); Potassium 4.6 mmol/L (3.5-5.1); Sodium 140 mmol/L (137-145); Total Protein 6.8 g/dL (6.3-8.2)
[2024-02-15 17:13] LABS: ALT 20 U/L (4-49); AST 22 U/L (17-59); Alcohol <10 mg/dL; Alkaline Phosphatase 191 U/L (38-126); Blood Urea Nitrogen 15 mg/dL (9-20); Calcium 9.2 mg/dL (8.4-10.2); Total Bilirubin 0.4 mg/dL (0.2-1.3)
[2024-02-15 21:51] VITALS: BP 128/80; PULSE 18; RESP 78; TEMP 98
== END 2024-02-15 21:51 | disposition home or self-care (01) ==
LOC: EC 14:22
DX: R45.4 Irritability and anger (principal); F14.90 Cocaine use, unspecified, uncomplicated; F12.90 Cannabis use, unspecified, uncomplicated
CPT/HCPCS: 82075; 36415; 80053; 85025; 81003; 80306; 99285; G0480; 80320

== ENCOUNTER 2024-02-26 06:26 | Emergency (ER) | payer MEDICARE ==
[2024-02-26 06:49] LABS: Basophils # (A) 0.1 k/uL (0-0.2); Basophils % (A) 1 %; Eosinophils # (A) 0.2 k/uL (0-0.7); Eosinophils % (A) 3 %; HCT 44.7 % (39.0-53.0); HGB 13.8 gm/dL (13.0-17.5); Lymphocytes # (A) 3.4 k/uL (1.0-4.8); Lymphocytes % (A) 48 %; MCH 24.8 pg (25.0-35.0); MCHC 30.9 g/dL (31.0-37.0); MCV 80.4 fL (80.0-100.0); Mean Platelet Volume 7.8; Monocytes # (A) 0.3 k/uL (0-1.0); Monocytes % (A) 5 %; Neutrophils % (A) 42 %; Platelet Count 165 k/uL (150-450); RBC 5.56 m/uL (4.30-5.90); RDW 14.9 % (11.5-15.5); WBC 7.1 k/uL (3.8-10.6)
[2024-02-26] MEDS: LORazepam 2 MG/ML INJ IV STA (07:05)
[2024-02-26 07:21] LABS: ALT 17 U/L (4-49); AST 19 U/L (17-59); African American GFR (CKD) >90 (>60 ml/min/1.73 sqM); Albumin 3.8 g/dL (3.5-5.0); Alkaline Phosphatase 161 U/L (38-126); Anion Gap 5 mmol/L; Blood Urea Nitrogen 10 mg/dL (9-20); Calcium 8.6 mg/dL (8.4-10.2); Carbon Dioxide 27 mmol/L (22-30); Chloride 106 mmol/L (98-107); Creatine Kinase 69 U/L (55-170); Glucose 136 mg/dL (74-99); Magnesium 1.4 mg/dL (1.6-2.3); Non-African American GFR(CKD) >90 (>60 ml/min/1.73 sqM); Potassium 4.1 mmol/L (3.5-5.1); Sodium 138 mmol/L (137-145); Total Bilirubin 0.5 mg/dL (0.2-1.3); Total Protein 6.4 g/dL (6.3-8.2)
--- NOTE | 2024-02-26 07:21 | ED ---
Recheck HPI - General Chief Complaint: Recheck/Abnormal Lab/Rx Stated Complaint: Tremors Time Seen by Provider: 02/26/24 06:38 Source: patient, EMS, RN notes reviewed, old records reviewed Mode of arrival: EMS Limitations: no limitations - History of Present Illness Initial Comments: This is a 68-year-old male to ER for evaluation of tremor shaking uncontrolled shaking concern for possibility of going into a seizure. Patient has history of alcoholism history of seizures and does not like his current living situation. Otherwise no significant symptoms no change in medications patient has no chest pain shortness of breath headache or abdominal pain MD Complaint: abnormal lab -: days(s) Returns Today for: Called Because of Abnormal Lab/Test, persistent/worsening pain related to initial visit Symptoms Since Prior Visit: no new symptoms Associated Symptoms: none Treatments Prior to Arrival: other (0) - Related Data Home Medications Medication Instructions Recorded Confirmed Aspirin EC [Ecotrin Low Dose] 81 mg PO DAILY 04/07/18 02/15/24 Phenytoin Sodium Extended 100 mg PO BID 04/07/18 02/15/24 [Dilantin] Multivitamins, Thera [Multivitamin 1 tab PO DAILY 02/07/23 02/15/24 (formulary)] Pravastatin Sodium [Pravachol] 20 mg PO DAILY 02/07/23 02/15/24 Acetaminophen [Tylenol 8 Hour] 650 mg PO Q8H PRN 02/15/24 02/15/24 Artificial Tears-Hypromellose 1 drops BOTH EYES Q8H PRN 02/15/24 02/15/24 [Artificial Tear Drops] Cholecalciferol [Vitamin D3 (25 25 mcg PO DAILY 02/15/24 02/15/24 Mcg = 1000 Iu)] Cyclobenzaprine [Flexeril] 5 mg PO DAILY PRN 02/15/24 02/15/24 Docusate [Colace] 100 mg PO BID 02/15/24 02/15/24 Lacosamide [Vimpat] 200 mg PO BID 02/15/24 02/15/24 Naloxone HCl [Narcan] 4 mg NASAL DIRECTED PRN 02/15/24 02/15/24 Sennosides/Docusate Sodium 1 tab PO DAILY 02/15/24 02/15/24 [Senna-S 8.6-50 mg Tablet] metFORMIN HCL ER [Glucophage XR] 500 mg PO BID 02/15/24 02/15/24 Previous Rx's Medication Instructions Recorded HYDROcodone/APAP 5-325MG [[place] 1 tab PO Q6H PRN 3 Days #12 tab 02/10/23 5-325] Allergies Allergy/AdvReac Type Severity Reaction Status Date / Time No Known Allergies Allergy Verified 02/26/24 06:32 Review of Systems ROS Statement: Those systems with pertinent positive or pertinent negative responses have been documented in the HPI. ROS Other: All systems not noted in ROS Statement are negative. Past Medical History Past Medical History: Memory Impairment, Osteoarthritis (OA), Seizure Disorder Additional Past Medical History / Comment(s): epigastric pain through to back for couple months, memory loss due to TBI, last seizure about 3 weeks ago History of Any Multi-Drug Resistant Organisms: None Reported Past Surgical History: No Surgical Hx Reported, Orthopedic Surgery Additional Past Surgical History / Comment(s): vasectomy, femur surgery Past Anesthesia/Blood Transfusion Reactions: No Reported Reaction Past Psychological History: Anxiety, Depression, No Psychological Hx Reported Past Alcohol Use History: Daily Past Drug Use History: Cocaine, Marijuana - Past Family History Mother Family Medical History: No Reported History Brother(s) Family Medical History: Diabetes Mellitus (Patient uncle also has diabetes mellitus.) General Exam General appearance: alert, in no apparent distress Head exam: Present: atraumatic, normocephalic, normal inspection Eye exam: Present: normal appearance, PERRL, EOMI. Absent: scleral icterus, conjunctival injection, periorbital swelling ENT exam: Present: normal exam, mucous membranes moist Neck exam: Present: normal inspection. Absent: tenderness, meningismus, lymphadenopathy Respiratory exam: Present: normal lung sounds bilaterally. Absent: respiratory distress, wheezes, rales, rhonchi, stridor Cardiovascular Exam: Present: regular rate, normal rhythm, normal heart sounds. Absent: systolic murmur, diastolic murmur, rubs, gallop, clicks GI/Abdominal exam: Present: soft, normal bowel sounds. Absent: distended, tenderness, guarding, rebound, rigid Extremities exam: Present: normal inspection, full ROM, normal capillary refill. Absent: tenderness, pedal edema, joint swelling, calf tenderness Back exam: Present: normal inspection Neurological exam: Present: alert, oriented X3, CN II-XII intact Psychiatric exam: Present: normal affect, normal mood Skin exam: Present: warm, dry, intact, normal color. Absent: rash Course Vital Signs 02/26/24 02/26/24 02/26/24 06:29 07:42 08:00 Temperature 97.2 F L Pulse Rate 74 80 80 Respiratory 18 16 16 Rate Blood Pressure 114/74 110/67 108/70 O2 Sat by Pulse 97 94 L 95 Oximetry 02/26/24 09:00 Temperature 98.0 F Pulse Rate 70 Respiratory 16 Rate Blood Pressure 100/67 O2 Sat by Pulse 94 L Oximetry - Reevaluation(s) Reevaluation #1: 02/26/24 08:30 Medical records reviewed Reevaluation #2: 02/26/24 08:30 No seizures here in the ER patient symptoms improved Reevaluation #3: 02/26/24 08:30 Patient informed of results questions answered Reevaluation #4: Was pt. sent in by a medical professional or institution (, PA, ROLL OPERATOR, urgent care, hospital, or fdc...) When possible be specific @ -no Did you speak to anyone other than the patient for history (EMS, parent, family, police, friend...)? What history was obtained from this source @ -no Did you review nursing and triage notes (agree or disagree)? Why? @ -agree Are old charts reviewed (outside hosp., previous admission, EMS record, old EKG, old radiological studies, urgent care reports/EKG's, fdc records)? Report findings @ -yes Differential Diagnosis (chest pain, altered mental status, abdominal pain women, abdominal pain men, vaginal bleeding, weakness, fever, dyspnea, syncope, headache, dizziness, GI bleed, back pain, seizure, CVA, palpatations, mental h ealth, musculoskeletal)? @ -prior EKG interpreted by me (3pts min.). @ -yes X-rays interpreted by me (1pt min.). @ -no CT interpreted by me (1pt min.). @ -no U/S interpreted by me (1pt. min.). @ -no What testing was considered but not performed or refused? (CT, X-rays, U/S, labs)? Why? @ -none What meds were considered but not given or refused? Why? @ -none Did you discuss the management of the patient with other professionals (professionals i.e. , PA, ROLL OPERATOR, lab, RT, psych nurse, social work instructor, business transformation manager, teacher, tactical debriefer officer, watch caser)? Give summary @ -no Was smoking cessation discussed for >3mins.? @ -no Was critical care preformed (if so, how long)? @ -no Were there social determinants of health that impacted care today? How? (Homelessness, low income, unemployed, alcoholism, drug addiction, transportation, low edu. Level, literacy, decrease access to med. care, fdc, rehab)? @ -none Was there de-escalation of care discussed even if they declined (Discuss DNR or withdrawal of care, Hospice)? DNR status @ -no What co-morbidities impacted this encounter? (DM, HTN, Smoking, COPD, CAD, Cancer, CVA, ARF, Chemo, Hep., AIDS, mental health diagnosis, sleep apnea, morbi d obesity)? @ -none Was patient admitted / discharged? Hospital course, mention meds given and rout e, prescriptions, significant lab abnormalities, going to OR and other pertinent info. @ - 68 male to ER for evaluation of weakness and seizure activity. Patient has no current seizure activity here in the ER magnesium is low that is replaced patient can be discharged back to facility Discharge weakness and seizure Undiagnosed new problem with uncertain prognosis? @ -no Drug Therapy requiring intensive monitoring for toxicity (Heparin, Nitro, Insulin, Cardizem)? @ -no Were any procedures done? @ -no Diagnosis/symptom? @ - Acute, or Chronic, or Acute on Chronic? @ -Acute Uncomplicated (without systemic symptoms) or Complicated (systemic symptoms)? @ -Complicated Side effects of treatment? @ -no Exacerbation, Progression, or Severe Exacerbation? @ -exacerbation Poses a threat to life or bodily function? How? (Chest pain, [place], [place], pneumonia, PE, COPD, DKA, ARF, appy, cholecystitis, CVA, Diverticulitis, Homicidal, Suicidal, threat to staff... and all critical care pts) @ -yes seizure activity Reevaluation #5: Differential Weakness: Hypoglycemia, shock, sepsis, hyponatremia, anemia, infection, [place], ETOH, adverse medicine reaction, overdose, stroke, this is not meant to be an all-inclusive list. Differential Seizure: Recurrent seizure disorder, febrile seizure, alcohol withdrawal, stimulants, meningitis, encephalitis, intercranial hemorrhage, intracranial tumor, stroke, eclampsia, thyrotoxicosis, hypocalcemia, hyponatremia, hypernatremia, hypom agnesemia, psychogenic, this is not meant to be an all-inclusive list. Medical Decision Making - Medical Decision Making 68 male to ER for evaluation of weakness and seizure activity. Patient has no current seizure activity here in the ER magnesium is low that is replaced patient can be discharged back to facility - Lab Data Result diagrams: 02/26/24 06:40 02/26/24 06:40 Lab Results 02/26/24 02/26/24 02/26/24 Range/Units 06:40 06:40 07:43 WBC 7.1 (3.8-10.6) k/uL RBC 5.56 (4.30-5.90) m/uL Hgb 13.8 (13.0-17.5) gm/dL Hct 44.7 (39.0-53.0) % MCV 80.4 (80.0-100.0) fL MCH 24.8 L (25.0-35.0) pg MCHC 30.9 L (31.0-37.0) g/dL RDW 14.9 (11.5-15.5) % Plt Count 165 (150-450) k/uL MPV 7.8 Neutrophils % 42 % Lymphocytes % 48 % Monocytes % 5 % Eosinophils % 3 % Basophils % 1 % Neutrophils # 3.0 (1.3-7.7) k/uL Lymphocytes # 3.4 (1.0-4.8) k/uL Monocytes # 0.3 (0-1.0) k/uL Eosinophils # 0.2 (0-0.7) k/uL Basophils # 0.1 (0-0.2) k/uL Sodium 138 (137-145) mmol/L Potassium 4.1 (3.5-5.1) mmol/L Chloride 106 (98-107) mmol/L Carbon Dioxide 27 (22-30) mmol/L Anion Gap 5 mmol/L BUN 10 (9-20) mg/dL Creatinine 0.44 L (0.66-1.25) mg/dL Est GFR (CKD-EPI)AfAm >90 (>60 ml/min/1.73 sqM) Est GFR (CKD-EPI)NonAf >90 (>60 ml/min/1.73 sqM) Glucose 136 H (74-99) mg/dL Calcium 8.6 (8.4-10.2) mg/dL Phosphorus 4.4 (2.5-4.5) mg/dL Magnesium 1.4 L (1.6-2.3) mg/dL Total Bilirubin 0.5 (0.2-1.3) mg/dL AST 19 (17-59) U/L ALT 17 (4-49) U/L Alkaline Phosphatase 161 H (38-126) U/L Creatine Kinase 69 (55-170) U/L Total Protein 6.4 (6.3-8.2) g/dL Albumin 3.8 (3.5-5.0) g/dL - EKG Data -: EKG Interpreted by Me (EKG is sinus 90 RI 192 QRS 83 QTc 415) Disposition Clinical Impression: Seizure disorder, Hypomagnesemia, Tremor Disposition: HOME SELF-CARE Condition: Good Instructions (If sedation given, give patient instructions): Hypomagnesemia (ED) Is patient prescribed a controlled substance at d/c from ED?: No Referrals: Tung Hinson DO [Primary Care Provider] - 1-2 days Time of Disposition: 08:00
[2024-02-26] MEDS: MAGNESIUM OXIDE 400 MG TAB PO STA ×2 (07:51→07:52)
[2024-02-26] MEDS: SODIUM CHLORIDE 0.9% 1,000 ML BAG IV STA (08:04)
[2024-02-26] MEDS: MAGNESIUM SULFATE-D5W PMX 1 GM in DEXTROSE/WATER 1 100ML.BAG IVPB ONE (08:08)
[2024-02-26 09:30] VITALS: BP 100/67; PULSE 70; RESP 16; TEMP 98
== END 2024-02-26 09:30 | disposition home or self-care (01) ==
LOC: EEVIPCON 06:26 → EC 06:26
DX: G40.909 Epilepsy, unspecified, not intractable, without status epilepticus (principal); E83.42 Hypomagnesemia
CPT/HCPCS: 36415; 93005; 80053; 82550; 83735; 84100; 85025; 99284; 96365; 96375 ×2; J2060; J3360; J3475